=== PATIENT | female | born 1980 | race Caucasian/White ===

== ENCOUNTER 2016-12-03 20:32 | Outpatient (CLI) | payer MEDICAID ==
[~2016-12-03] VITALS: Ht 170.2 cm; Wt 125.0 kg
[2016-12-03 22:13] VITALS: Ht 170.2 cm; Wt 125.0 kg
[2016-12-03 22:25] VITALS: BP 122/73; PULSE 115; RESP 18
[2016-12-03 23:25] LABS: ADD UMIC YES; URINE BILIRUBIN (Dip) 1+ (NEGATIVE); URINE BLOOD (Dip) NEGATIVE (NEGATIVE); URINE COLOR YELLOW (YELLOW); URINE GLUCOSE (Dip) NEGATIVE (NEGATIVE); URINE KETONES (Dip) TRACE (NEGATIVE); URINE LEUKOCYTE ESTERASE (Dip) TRACE (NEGATIVE); URINE NITRITE (Dip) NEGATIVE (NEGATIVE); URINE TOTAL PROTEIN (Dip) TRACE (NEGATIVE); URINE UROBILINOGEN (Dip) 0.2 E.U./dL (0.1-1.0)
[2016-12-03 23:57] LABS: BACTERIA,URINE MANY; ICTOTEST NEGATIVE (NEGATIVE); SQUAMOUS EPITHELIAL CELL,UR MODERATE
[2016-12-04 00:05] LABS: URINE RBCS 0-2 /HPF (0)
--- NOTE | 2016-12-04 00:14 | RADRPT ---
PROCEDURE: US OB. CLINICAL INDICATION: , contractions. TECHNIQUE: Multiple sonographic images of the pelvis were obtained. Transabdominal and transvagin al imaging was performed. The images were reviewed on a PACS workstation. COMPARISON: No prior studies are available for comparison. FINDINGS: The cervix is closed with a transvaginal length of 3.0 cm. There is a single viable intrauterine gestation. Cardiac activity is present with 146 beats per minute. There is a cephalic presentation. Measurements were made in order to determine age. The results are as follows: BPD = 9.13 cm HC = 32.94 cm AC = 32.65 cm FL = 6.84 cm Estimated gestational age of approximately 36 weeks 4 days. The estimated date of delivery is 12/27/2016. The EFW = 2917 g (6 pounds 7 ounces. EFW percentile: >97% The placenta is anterior, grade 1-2. There is no evidence for an abruption or placenta previa. There is an adequate amount of amniotic fluid. IMPRESSION: 1. Single viable intrauterine gestation of approximately 36 weeks 4 days, based on ultrasound measu rements. The estimated date of delivery is 12/27/2016. 2. EFW percentile: >97%. 3. Transvaginal cervical length: 3.0 cm. RPTAT: HTAR .Matt Bloom MD, MD Date Time Electronically viewed and signed by .Matt Bloom MD, MD on 12/04/2016 00:13 .R/
--- NOTE | 2016-12-04 02:04 | RADRPT ---
PROCEDURE: Biophysical profile. CLINICAL INDICATION: Pelvic pain. TECHNIQUE: Multiple sonographic images of the pelvis were obtained with transabdominal technique. COMPARISON: 12/03/2016. FINDINGS: There is a single living intrauterine gestation with the fetus in a vertex position. The placenta i s anterior in location grade 1 to 2. heart tones of 132 beats per minute are identified. Ther e is increased amniotic fluid volume with an HARRIETT of 29.1 cm. breathing movements = 2 Gross body movements = 2 tone = 2 Qualitative AFV = 2 IMPRESSION: Biophysical profile 8 out of 8. Polyhydramnios with an HARRIETT of 29.1 cm. .Tylor Winter MD, MD Date Time Electronically viewed and signed by .Tylor Winter MD, on 12/04/2016 02:04 .T/
--- NOTE | 2016-12-04 02:09 | QN ---
Documentation Comment 36 years old with IUP at 33 weeks and 2 days here was sent from clinic for evaluation due to size larger than date noted during examination. she had a 15 mo old baby, conceived while she was breast feeding, unsure about her dating. Was told that she measures about 42 cm v s 33 weeks that is expected to be based on her prior us. was told that has excess AF. Denies any history of GDM or DM . States that had normal gestational diabetes screen. her random Blood sugar is normal. She reports had 7 lb weight gain in the last mo of . BP s are all lyndon. Denies any preclampsia symptoms. O;. GA: A&O, NAD, obese HEENT: Hirsutims in the face. Profile consistent with PCOS Abdomen Soft, gravid. Fundal height larger than reported GA US: EFW: 2917 grams. > 97 % HARRIETT:29.1 BPP: 07/07 Assessment: IUP at 33 weeks by her GA Polyhydramnios normal RBS. HbA1c pending No evidence of labor Discussed with the patient finding of polyhydramnios Had been seen by perinatolgist, no records available Increased risk for abruption, PTD and in case of PROM, prolpase of cord discussed Precaution was given to present to L&D in case of any leaking or evidence of labor GALINA RT triage in 3 days for repeat NST/ HARRIETT until she has stablished care and follow up with her perinatolgist Needs work up for polyhydramnios, r/o anomaly with detaild us by perinatolgist Due to increased weight gain and obesity increased risk for preclampsia discused and precaution was given PTL precaution kick count RTc in 3 days for repeat NST. HARRIETT and follow up Hb A1c. RBS today is in normal range SELWYN ANTONY MD Dec 04, 2016 02:09
--- NOTE | 2016-12-04 02:46 | TRIAGE ---
OB Triage Datetime Report Generated by CPN: 12/04/2016 02:46 Datetime: 12/04/2016 02:00 Labor Evaluation Frequency: OCCASIONAL Monitor Mode: External Pattern: Normal: <= 5 Contractions in 10 Minutes Heart Rate FHR Baseline Rate: 135 Monitor Mode: External US FHR Baseline Changes: No Baseline Change Variability: Moderate 6-25 bpm Datetime: 12/04/2016 01:30 Labor Evaluation Frequency: 2-5 Monitor Mode: External Duration (sec)2399: 50-70 Pattern: Normal: <= 5 Contractions in 10 Minutes Heart Rate FHR Baseline Rate: 135 Monitor Mode: External US FHR Baseline Changes: No Baseline Change Variability: Moderate 6-25 bpm Datetime: 12/03/2016 23:00 Labor Evaluation Frequency: 2-4 Monitor Mode: External Duration (sec)2399: 40-60 Pattern: Normal: <= 5 Contractions in 10 Minutes Contraction Comments: OCCASIONAL. PT. DECLINES FEELING UC'S Heart Rate FHR Baseline Rate: 135 Monitor Mode: External US FHR Baseline Changes: No Baseline Change Variability: Moderate 6-25 bpm Datetime: 12/03/2016 22:44 Contraction Comments: pt. declines feeling contractions, only complains of lower vaginal pressure Datetime: 12/03/2016 22:00 Stage of : OB Triage Labor Evaluation Frequency: 2-4 Monitor Mode: External Duration (sec)2399: 40-70 Pattern: Normal: <= 5 Contractions in 10 Minutes Contraction Comments: pt. declines feeling uc's Heart Rate FHR Baseline Rate: 135 Heart Rate FHR Baseline Rate: 130 Monitor Mode: External US FHR Baseline Changes: No Baseline Change Variability: Moderate 6-25 bpm Accelerations: 10X10 Decelerations: None Category: Category I Datetime: 12/03/2016 21:15 Time of Arrival: 12/03/2016 20:21 EGA: 33.2 Arrived By: Ambulatory Arrived From: Home Chief Complaint: MEASURING LARGER THAN DATES EXCESS WEIGHT GAIN. PT. STATES THAT M.D. TOLD PT. SHE IS MEASURING LARGER AND TOLD HER TO GET AN U/S DONE, BUT DID NOT F/U WITH OFFICE. CAME WITH ORDERS FOR U/S Movement: Present Contractions: Denies/Absent Rupture of Membranes: Denies Vaginal Bleeding: None Vaginal Discharge: Present Recent Sexual Intercouse: Denies Abdominal Trauma: Not Applicable Patient Complaints: Other Additional Patient Complaints: LOWER BACK PAIN AND PRESSURE Time Provider Notified: 12/03/2016 22:11 Provider Notified: ARPAN Initial Plan: EFW, U/S, CALL OB Datetime: 12/03/2016 21:12 Monitor Mode: Palpation Quality: Mild Datetime: 12/03/2016 20:25 Stage of : OB Triage Assessment Type: Triage Maternal Assessment Level of Consciousness: Fully Conscious DTR's/Clonus: DTRs 2+; No Clonus Headache: Denies Blurred Vision: No Respiratory Effort: Unlabored; Regular Rhythm; Equal Expansion Breath Sounds, Left: Clear and Equal Breath Sounds, Right: Clear and Equal Nausea/Vomiting: Denies RUQ Epigastric Pain: Denies Lower Extremities Edema: None Degree: None Upper Extremities Edema: None Degree: None Facial Edema: None Temperature Route: Axillary Fall Risk Assessment History of Falling: (0) No Secondary Diagnosis: (0) No Ambulatory Aid: (0) Bedrest/Nurse Assist IV Therapy: (0) No Gait: (0) Normal/Bedrest/Immobile Mental Status: (0) Oriented to Own Ability Fall Score: 0 Fall Risk Score Definition: No Risk: No action required Monitor Mode: External Monitor Mode: External US Pain Assessment Pain Scale: 0
== END 2016-12-04 02:30 | disposition home or self-care (01) ==
LOC: OBT 20:32 → L-D 20:37 → OBT 12-04 02:30
PROVIDERS: ATTEND Obstetrics & Gynecology
DX: O40.3XX0 Polyhydramnios, third trimester, not applicable or unspecified (principal); Z3A.33 33 weeks gestation of pregnancy
CPT/HCPCS: 76815; 76817; 76818; 81001; 82731; 82962; 83036; Z7500; 81003; G0463

== ENCOUNTER 2016-12-06 12:47 | Outpatient (CLI) | payer MEDICAID ==
[~2016-12-06] VITALS: Ht 170.2 cm; Wt 127.0 kg
[2016-12-06 13:00] VITALS: Ht 170.2 cm; Wt 127.0 kg
[2016-12-06 13:01] VITALS: BP 107/68; PULSE 105; RESP 20
--- NOTE | 2016-12-06 14:13 | RADRPT ---
PROCEDURE: US OB. CLINICAL INDICATION: Polyhydramnios TECHNIQUE: Pelvic ultrasound performed for biophysical profile. COMPARISON: 12/04/2016 FINDINGS: Single intrauterine gestation present with heart rate at 01/27 beats per minute. Presentation is ce phalic. Placenta is anterior, grade II. Biophysical profile score is 8/8 (breathing=2, movement=2, tone =2, fluid volume=2). Amniotic fluid volume is within normal limits, with HARRIETT = 31.6 cm. IMPRESSION: Biophysical profile score 8/8. Findings consistent with polyhydramnios with an HARRIETT of 31.6 cm .Ezra Altamirano MD, MD Date Time Electronically viewed and signed by .Ezra Altamirano MD, on 12/06/2016 14:13 .[place]ul
--- NOTE | 2016-12-06 14:23 | RADRPT ---
PROCEDURE: Limited OB ultrasound CLINICAL INDICATION: Polyhydramnios TECHNIQUE: Sonographic evaluation to assess the cervical length was performed. Transabdominal merced ging of the gravid uterus was performed. COMPARISON: No prior exam is available for comparison. FINDINGS: There is a single live intrauterine with cardiac activity, with a heart rate o f 01/27 bpm. The cervix is closed with a length of 3.3 cm. IMPRESSION: The cervix is closed with a length of 3.3 cm. RPTAT: HSM .Ezra Altamirano MD, MD Date Time Electronically viewed and signed by .Ezra Altamirano MD, on 12/06/2016 14:23 .M/
--- NOTE | 2016-12-06 15:27 | TRIAGE ---
OB Triage Datetime Report Generated by CPN: 12/06/2016 15:27 Datetime: 12/06/2016 15:06 Monitor Mode: External Quality: Mild Pattern: Normal: <= 5 Contractions in 10 Minutes Resting Tone [employer]: Relaxed Heart Rate FHR Baseline Rate: 125 Monitor Mode: External US FHR Baseline Changes: No Baseline Change Variability: Moderate 6-25 bpm Accelerations: 15X15 Decelerations: None Category: Category I Pain Assessment Pain Scale: 1 Pain Presence: Intermittent Pain Type: Cramping Pain Location: Abdomen Pain Goal: 5 Vaginal Exam Membrane Status: Intact Datetime: 12/06/2016 14:24 Maternal Assessment Level of Consciousness: Fully Conscious DTR's/Clonus: DTRs 2+ Headache: Denies Blurred Vision: No Nausea/Vomiting: Denies RUQ Epigastric Pain: Denies Facial Edema: None Labor Evaluation Frequency: IRREG Monitor Mode: External Quality: Mild Pattern: Normal: <= 5 Contractions in 10 Minutes Resting Tone [employer]: Relaxed Heart Rate FHR Baseline Rate: 130 Monitor Mode: External US FHR Baseline Changes: No Baseline Change Variability: Moderate 6-25 bpm Accelerations: 15X15 Decelerations: None Category: Category I Pain Assessment Pain Scale: 1 Pain Presence: Intermittent Pain Type: Cramping Pain Location: Abdomen Pain Goal: 6 Datetime: 12/06/2016 13:04 Maternal Assessment Level of Consciousness: Fully Conscious DTR's/Clonus: DTRs 2+ Headache: Denies Blurred Vision: No Nausea/Vomiting: Denies RUQ Epigastric Pain: Denies Facial Edema: None Labor Evaluation Frequency: Q 2 Monitor Mode: External Quality: Mild Pattern: Normal: <= 5 Contractions in 10 Minutes Resting Tone [employer]: Relaxed Heart Rate FHR Baseline Rate: 130 FHR Baseline Changes: No Baseline Change Variability: Minimal - Undetectable to <=5 bpm Accelerations: 10X10 Decelerations: None Category: Category I Pain Assessment Pain Scale: 1 Pain Presence: Intermittent Pain Type: Cramping Pain Location: Abdomen Pain Goal: 5 Datetime: 12/06/2016 12:56 Time of Arrival: 12/06/2016 12:56 EGA: 33.5 Arrived By: Ambulatory Arrived From: Home Chief Complaint: NST/BPP DUE TO POLYHYDRAMNIOS Movement: Present Contractions: Regular Rupture of Membranes: Denies Vaginal Bleeding: None Vaginal Discharge: Denies Recent Sexual Intercouse: Denies Abdominal Trauma: Not Applicable Patient Complaints: Cramping Time Provider Notified: 12/06/2016 13:47 Provider Notified: HARI Initial Plan: EFM,NST/BPP Datetime: 12/06/2016 12:55 Maternal Assessment Level of Consciousness: Fully Conscious DTR's/Clonus: DTRs 2+; No Clonus Headache: Denies Blurred Vision: No Respiratory Effort: Unlabored; Regular Rhythm; Equal Expansion Breath Sounds, Left: Clear and Equal Breath Sounds, Right: Clear and Equal Nausea/Vomiting: Denies RUQ Epigastric Pain: Denies Facial Edema: None Temperature Route: Axillary Fall Risk Assessment History of Falling: (0) No Secondary Diagnosis: (0) No Ambulatory Aid: (0) Bedrest/Nurse Assist IV Therapy: (0) No Gait: (0) Normal/Bedrest/Immobile Mental Status: (0) Oriented to Own Ability Fall Score: 0 Fall Risk Score Definition: No Risk: No action required Datetime: 12/03/2016 21:15 EGA: 33.2 Datetime: 12/03/2016 20:25 Fall Score: 0 Fall Risk Score Definition: No Risk: No action required
== END 2016-12-06 15:45 | disposition home or self-care (01) ==
LOC: OBT 12:47 → L-D 12:50 → OBT 15:45
PROVIDERS: ATTEND Obstetrics & Gynecology
DX: O40.3XX0 Polyhydramnios, third trimester, not applicable or unspecified (principal); O09.523 Supervision of elderly multigravida, third trimester; Z3A.33 33 weeks gestation of pregnancy
CPT/HCPCS: 76817; 76818; Z7500; G0463